=== PATIENT | male | born 1990 | race Caucasian/White ===

== ENCOUNTER 2016-09-18 17:19 | Emergency (ER) | payer SELFPAY ==
[~2016-09-18] VITALS: Ht 180.3 cm; Wt 90.5 kg
--- OUTSIDE RECORDS SUMMARY | 2016-09-18 17:24 | XMS REPORT ---
Author Author Costa Lazo Organization [employer] Address Unknown Phone Unavailable Care Team Providers Care Facility Assistant Name Role Phone Costa Lazo CP Unavailable Allergies, Adverse Reactions, Alerts Substance Reaction Event Type N.K.D.A. Info Not Available Non Drug Allergy Problems Problem Type Condition Code Onset Dates Condition Status Assessment Encounter for dental examination and cleaning without abnormal findings Z01.20 Active Medications Medication Code System Code Instructions Start Date End Date Status Dosage Chlorhexidine Gluconate [facility] [address]-24 0.12 % Mouth/Throat morning and bedtime not defined Hydrocodone-Acetaminophen [facility] [address]-26 5-325 MG Orally every 4-6 hours p.r.n. for Dec 01, 2015 1 tablet as needed Amoxicillin [facility] [address]-19 500 MG Orally every 8 hrs for 1 capsule Procedures Procedure Coding System Code Date INTRAORL-PERIAPICAL 1 FILM 91272 CPT-4 D0220 Nov 27, 2015 [facility] ORAL EVALUATION - PROBLEM FOCUS CPT-4 D0140 Nov 27, 2015 INTRAORL-PERIAPICAL EA ADD FILM CPT-4 D0230 Nov 27, 2015 [place] [facility]-MINOR PROC CPT-4 D9110 Nov 27, 2015 Results No Known Results Summary Purpose [employer] Submission
--- OUTSIDE RECORDS SUMMARY | 2016-09-18 17:24 | XMS REPORT ---
Author Author Fabricio Mathew Organization [employer] Address Unknown Phone Unavailable Care Team Providers Care Waterway Traffic Checker Name Role Phone Fabricio Mathew CP Unavailable Allergies, Adverse Reactions, Alerts Substance Reaction Event Type N.K.D.A. Info Not Available Non Drug Allergy Problems Problem Type Condition Code Onset Dates Condition Status Assessment Encounter for dental examination and cleaning without abnormal findings Z01.20 Active Medications Medication Code System Code Instructions Start Date End Date Status Dosage [facility] [address]-82 5-325 MG Orally every 4-6 hrs Apr 09, 2015Mar 1 tablet as needed Procedures Procedure Coding System Code Date INTRAORL-PERIAPICAL 1 FILM 87979 CPT-4 D0220 Apr 09, 2015 [place] [facility]-MINOR PROC CPT-4 D9110 Apr 09, 2015 [facility] ORAL EVALUATION - PROBLEM FOCUS CPT-4 D0140 Apr 09, 2015 Results No Known Results Summary Purpose [employer] Submission
--- OUTSIDE RECORDS SUMMARY | 2016-09-18 17:24 | XMS REPORT ---
Author Author Costa Lazo Organization [employer] Address Unknown Phone Unavailable Care Team Providers Care Hoop Bending Machine Operator Name Role Phone Costa Lazo CP Unavailable Allergies No Known Allergies Problems Problem Type Condition Code Onset Dates Condition Status Assessment Encounter for dental examination and cleaning without abnormal findings Z01.20 Active Medications Medication Code System Code Instructions Start Date End Date Status Dosage Hydrocodone-Acetaminophen [facility] [address]-02 7.5-325 MG Orally every 4-6 hrs p.r.n. for 1 tablet as needed Amoxicillin [facility] [address]-89 500 MG Orally every 8 hrs for 1 capsule Amoxicillin [facility] [address]-84 500 MG Orally every 8 hrs for 1 capsule Chlorhexidine Gluconate [facility] [address]-46 0.12 % Mouth/Throat morning and bedtime not defined Procedures Procedure Coding System Code Date INTRAORL-PERIAPICAL 1 FILM 10870 CPT-4 D0220 Mar 17, 2016 [place] [facility]-MINOR PROC CPT-4 D9110 Mar 17, 2016 LTD ORAL EVALUATION - PROBLEM FOCUS CPT-4 D0140 Mar 17, 2016 Results No Known Results Summary Purpose [employer] Submission
--- OUTSIDE RECORDS SUMMARY | 2016-09-18 17:24 | XMS REPORT ---
Author Author Fabricio Mathew Organization [employer] Address Unknown Phone Unavailable Care Team Providers Care Environmental Quality Analyst Name Role Phone Fabricio Mathew CP Unavailable Allergies, Adverse Reactions, Alerts Substance Reaction Event Type N.K.D.A. Info Not Available Non Drug Allergy Problems Problem Type Condition Code Onset Dates Condition Status Assessment Dental caries, unspecified K02.9 Active Medications Medication Code System Code Instructions Start Date End Date Status Dosage [place] [facility] [address]-87 5-325 MG Orally q 4-6 h 1 tablet as needed Amoxicillin [facility]DC [address]-16 500 MG Orally every 8 hrs 1 capsule [place] [facility] [address]-87 5-325 MG Orally q 4-6 h 1 tablet as needed [place] [facility] [address]-86 5-325 MG Orally every 4-6 hrs May 30, 2015 1 -2 tablets as needed Procedures Procedure Coding System Code Date EXTRAC ERUPTED TOOTH/EXPOSED ROOT CPT-4 D7140 May 31, 2015 Results No Known Results Summary Purpose [employer] Submission
--- OUTSIDE RECORDS SUMMARY | 2016-09-18 17:24 | XMS REPORT ---
Author Author Fabricio Mathew Organization [employer] Address Unknown Phone Unavailable Care Team Providers Care Cleaner Operator Name Role Phone Fabricio Mathew CP Unavailable Allergies No Known Allergies Problems Problem Type Condition Code Onset Dates Condition Status Assessment Dental caries, unspecified K02.9 Active Medications Medication Code System Code Instructions Start Date End Date Status Dosage [place] [facility] [address]-14 5-325 MG Orally every 4-6 hrs Apr 09, 2015Mar 1 [place] [address]-43 5-325 MG Orally q 4-6 h 1 tablet as needed Procedures Procedure Coding System Code Date SURG REMOVAL ERUPTED TOOTH CPT-4 D7210 Apr 12, 2015 Results No Known Results Summary Purpose [employer] Submission
--- OUTSIDE RECORDS SUMMARY | 2016-09-18 17:24 | XMS REPORT ---
Author Author Costa Lazo Organization [employer] Address Unknown Phone Unavailable Care Team Providers Care Linter Drier Operator Name Role Phone Costa Lazo CP Unavailable Allergies No Known Allergies Problems Problem Type Condition Code Onset Dates Condition Status Assessment Dental caries, unspecified K02.9 Active Medications Medication Code System Code Instructions Start Date End [place] [address]-76 500 MG Orally every 8 hrs for 1 [place] [address]-70 7.5-325 MG Orally every 4-6 hrs p.r.n. for 1 tablet as needed Chlorhexidine Gluconate [facility] [address]-83 0.12 % Mouth/Throat morning and bedtime not defined Amoxicillin [place] [address]-75 500 MG Orally every 8 hrs for 1 [place] [address]-99 7.5-325 MG Orally every 4-6 hrs p.r.n. for 1 tablet as needed Procedures Procedure Coding System Code Date EXTRAC ERUPTED TOOTH/EXPOSED ROOT CPT-4 D7140 Mar 19, 2016 Vital Signs Date/Time: Mar 19, 2016 Blood Pressure Diastolic 79 mm Hg Blood Pressure Systolic 115 mm Hg Cardiac Monitoring Heart Rate 57 /min Results No Known Results Summary Purpose [employer] Submission
[2016-09-18 17:26] VITALS: Ht 180.3 cm; Wt 90.5 kg
--- NOTE | 2016-09-18 17:34 | NUR ---
DR DR DAVIS IN ROOM.
--- NOTE | 2016-09-18 17:38 | ERPDOC ---
Departure Disposition Decision Date: September 18, 2016 Disposition Decision Time: 18:11 Disposition: 01 DISCHARGED HOME, SELF-CARE Impression Impression Impression: Primary Impression: Fracture of metacarpal of right hand, closed Encounter type: initial encounter Qualified Codes: S62.309A - Unspecified fracture of unspecified metacarpal bone, initial encounter for closed fracture Severity: Moderate Condition: Stable Seen By: Physician only Referrals: MIRYAM DOWNING MD Follow-up for reevaluation call for appointment next week Patient Instructions: Hand Fracture (ED), RICE Therapy (ED) Problems/Meds/Labs Reviewed?: Yes Medications reviewed and manag: Yes Additional Instructions: May also use ibuprofen 800 mg every 8 hours Departure Forms: Return to Work/School Permit Return to Work/School Date: September 18, 2016 Restrictions: must wear splint or cast until cleared by another physician Follow up care ordered?: Yes Mental Status: Alert, Oriented Scripts Hydrocodone/Apap ([place] 5-325 Tablet) 5-325 Tablet 1-2 TAB PO Q6H Y for PAIN, #20 TAB Prov: KYLAH DAVIS MD 09/18/16 HPI General Chief Complaint: Upper Extremity Injury Stated Complaint: POSS BROKEN RT HAND Time Seen by Provider: 17:37 HPI Hand/Forearm Allergies: Coded Allergies: No Known Allergies (Unverified , 09/18/16) Past History Surgical History General: tonsils Exam General Vital Signs: Temperature: 98.1, Source: Oral, Heart Rate: 54, Respiratory Rate : 12, BP: 138/70, Pulse Oximetry: 97 Height (Feet): 5 Height (Inches): 11.00 Neurologic RN Documented GCS Eye Opening: Verbal: Motor: Total: Progress Results/Orders Orders Procedure Category Date Status Time Hand Right 3 View RAD 09/18/16 Taken 17:37 Hydrocodone/Acetaminophen PHA 09/18/16 Complete ([place] 7.5/325 17:45 Icepack EDM 09/18/16 Transmitted 17:38 Medications Current ED Medications Acetaminophen/ Hydrocodone Bitart ([place] 7.5/325) 1 tab O ONCE PO Last administered on 09/18/16t 17:42; Start 09/18/16 at 17:45; Stop 09/18/16 at 17:46 ; Status DC KYLAH DAVIS MD September 18, 2016 17:38
[2016-09-18] MEDS ORDERED: NO ROUTINE MEDS (17:57)
[2016-09-18] MEDS ORDERED: HYDR-3989 PO (18:13)
[2016-09-18 18:27] VITALS: BP 132/68; PULSE 78; RESP 14; TEMP 97.4; O2SAT 99
--- NOTE | 2016-09-19 08:08 | DI ---
Indication: ITS.REASON: focus distal ring and little metacarpals PROCEDURE: HAND RIGHT 3 VIEW: Encounter: Initial Comparison: None Findings: Subtle evidence of a minimally impacted fracture of the fifth metacarpal head. There is adjacent soft tissue swelling. No additional acute fracture or dislocation is seen. Impression: Closed posttraumatic fifth metacarpal head fracture. .
== END 2016-09-18 18:27 | disposition home or self-care (01) ==
LOC: ED 17:19
DX: S62.396A Other fracture of fifth metacarpal bone, right hand, initial encounter for closed fracture (principal); W54.1XXA Struck by dog, initial encounter; W10.8XXA Fall (on) (from) other stairs and steps, initial encounter; Y93.89 Activity, other specified; Y92.008 Other place in unspecified non-institutional (private) residence as the place of occurrence of the external cause; Y99.8 Other external cause status